=== PATIENT | male | born 1955 | race Caucasian/White ===

== ENCOUNTER 2019-10-06 01:35 | Emergency (ER) | payer MEDICAID, OTHER ==
[~2019-10-06] VITALS: Ht 170.2 cm; Wt 72.6 kg
[2019-10-06 01:44] VITALS: BP 183/97
--- NOTE | 2019-10-06 01:44 | NUR ---
PT BIB [facility] TO ER BED 11
--- NOTE | 2019-10-06 01:45 | NUR ---
64 Y/O MALE MEGAN FROM [facility]. PRESENTS TO ED, C/O RIGHT HIP PAIN. PT STATES SUFFERING FROM FALL 1 MONTH AGO. PT STATES HAVING WORSENING PAIN TODAY, 7/10 PAIN SCALE. PT ABLE TO AMBULATE WITH WALKER. LIMITED ROM OF RIGHT LEG. BILAT STRONG PEDAL PULSES. VSS. ERMD AWARE. WILL CONTINUE TO MONITOR.
[2019-10-06] MEDS ORDERED: KETOROLAC 30 MG/ML VIAL IM ONE (02:40)
[2019-10-06 04:00] VITALS: BP 176/77
--- NOTE | 2019-10-06 04:00 | NUR ---
PT DISCHARGED WITH PAPERWORK. EDUCATED PT REGARDING D/C DIAGNOSIS AND MEDICATIONS. PT VERBALIZED UNDERSTANDING. TOLD PT TO FOLLOW UP WITH PCP AND WHEN TO RETURN TO ED. PT STABLE CONDITION. ALL QUESTIONS ANSERED.
== END 2019-10-06 04:07 | disposition home or self-care (01) ==
LOC: MED 01:35
DX: S73.101A Unspecified sprain of right hip, initial encounter (principal); I10 Essential (primary) hypertension; W19.XXXA Unspecified fall, initial encounter; Y93.89 Activity, other specified; Y92.89 Other specified places as the place of occurrence of the external cause; Y99.8 Other external cause status
CPT/HCPCS: 73502; 96372; 99283; J1885; Q0092

== ENCOUNTER 2019-10-24 02:04 | Emergency (ER) | payer OTHER ==
[~2019-10-24] VITALS: Ht 170.2 cm; Wt 72.6 kg
--- NOTE | 2019-10-24 02:10 | NUR ---
PT AMBULATED FROM EMS GURNEY TO BED 2
[2019-10-24 02:14] VITALS: BP 202/96
--- NOTE | 2019-10-24 02:20 | NUR ---
64 Y/O MALE C/O RT HIP PAIN X 5MONTHS. BIBA FROM [facility]. RATES PAIN 2/10 AND DESCRIBES IT ACHING. PT SAYS HE BROKE HIS HIP 5 MONTHS AGO AND IS SAYING ITS STILL BROKEN. VSS. NO RESP DISTRESS NOTED. HEART SOUND S1S2 PRESENT. NONPITTING EDEMA ON BLE. A & O X4. PT HAS STEADY WITH WALKER. NO OBVIOUS DEFORMITY NOTED ON EXTREM. NKA. PMH: CHF, HTN, CKD, CAD.
[2019-10-24] MEDS ORDERED: KETOROLAC 60 MG/2 ML VIAL IM ONE (02:55)
--- NOTE | 2019-10-24 06:20 | NUR ---
GAVE REPORT TO [facility] FOR PT. JANENE SAID THEY ARE UNABLE TO ARRANGE TRANSPORATION FOR PT RETURN, HE SAID FOR US TO ARRANGE FOR TRANSPORTATION FOR PTS RETURN. DANG SALAZAR ARRAGNGED TRANSPORATION AND SAID ETA FOR PT ENERGY AND CONSERVATION TECHNICIAN WAS [phone].
--- NOTE | 2019-10-24 06:34 | NUR ---
Patient discharged with v/s stable. Written and verbal after care instructions given and explained. Patient alert, oriented and verbalized understanding of instructions. Ambulance Transport with to home. All questions addressed prior to discharge. ID band removed. Patient advised to follow up with PMD. Rx of MEDROL DOSEPAK, TRAMADOL AND MOTRIN given. Patient educated on indication of medication including possible reaction and side effects. Opportunity to ask questions provided and answered.
--- NOTE | 2019-10-24 07:18 | NUR ---
Pt report given to ISAMAR MARTINEZ. Transfer of care at this time.
--- NOTE | 2019-10-24 07:20 | NUR ---
RECEIVED REPORT . PT RESTING IN BED. AOX4. STATED PAIN RELIEVED.
[2019-10-24 08:55] VITALS: BP 147/72
--- NOTE | 2019-10-24 09:08 | NUR ---
WHEELCHAIRED PT TO LOBBY, OCCASIONAL BABYSITTER WILL BE HERE IN 5 MINUTES.. PT AWAKE, ALERT. ALL PERSONAL BELONGINGS WITH PT.
== END 2019-10-24 06:34 ==
LOC: MED 02:04
DX: M16.0 Bilateral primary osteoarthritis of hip (principal); R42 Dizziness and giddiness; I10 Essential (primary) hypertension
CPT/HCPCS: 72192; 96372; 99284; J1885